=== PATIENT | male | born 1980 | race Caucasian/White ===

== ENCOUNTER → 2017-06-14 | Outpatient (CLI) | payer BC ==
--- NOTE | 2017-06-14 13:08 | Diagnostic Imaging Report ---
3 views of the lumbar spine. INDICATION: Back pain. FINDINGS: Satisfactory alignment of the lumbar spine is seen. The vertebral body heights are preserved. Disc heights are also preserved. No anterior or posterior osteophytes are seen. Sclerotic changes with question of subtle erosions along the right SI joint is seen. IMPRESSION: Findings in the right SI joints is suggestive of sacroiliitis. Dictated by: Dictated on workstation # [id number]
== END ==
LOC: RAD 12:25
PROVIDERS: ATTEND Nurse Practitioner Family
DX: M54.41 Lumbago with sciatica, right side (principal)
CPT/HCPCS: 72100